=== PATIENT | male | born 1980 | race Caucasian/White ===

== ENCOUNTER 2016-06-17 18:47 | Emergency (ER) | payer SELFPAY ==
[2016-06-17 19:04] VITALS: BP 152/73; PULSE 70; RESP 18; TEMP 98; O2SAT 100
== END 2016-06-17 19:28 | disposition home or self-care (01) | DRG 563 ==
LOC: ED 18:47
DX: S63.297A Dislocation of distal interphalangeal joint of left little finger, initial encounter (principal)
CPT/HCPCS: 26770; 73140; 99282

== ENCOUNTER 2017-01-31 14:46 | Emergency (ER) | payer SELFPAY ==
[2017-01-31] MEDS ORDERED: HYDROMORPHONE HCL 2 MG/ML SOL IV ONE ×3 (15:03→17:27)
[2017-01-31] MEDS ORDERED: ONDANSETRON HCL 4 MG/2 ML SOL IV ONE (15:04)
[2017-01-31 15:05] LABS: APPEARANCE,URINE Slightly Cloudy; BILIRUBIN,URINE 1+ (NEGATIVE); COLOR,URINE Yellow; GLUCOSE, URINE (UA) NEGATIVE (NEGATIVE); KETONES,URINE NEGATIVE (NEGATIVE); LEUKOCYTE ESTERASE ,URINE NEGATIVE (NEGATIVE); NITRATE,URINE NEGATIVE (NEGATIVE); OCCULT BLOOD,URINE 1+ (NEG-TRACE); PH,URINE 5.5; UROBILINOGEN,URINE 0.2 (0.2-1.0 EU)
[2017-01-31] MEDS ORDERED: SODIUM CHLORIDE 0.9% 1000ML 1,000 ML IV ONE (15:05)
[2017-01-31] MEDS ORDERED: ONDANSETRON HCL 4 MG/2 ML SOL ONE (15:16)
[2017-01-31] MEDS ORDERED: HYDROMORPHONE 1 MG/ML SYRINGE ONE ×3 (15:16→17:28)
[2017-01-31 15:27] LABS: WBC,URINE 0-3 (0-5AV/HPF)
[2017-01-31 15:29] VITALS: TEMP 98.1
[2017-01-31 15:29] LABS: ICTOTEST,URINE NEGATIVE (NEGATIVE)
[2017-01-31 15:31] LABS: ALBUMIN 3.3 gm/dl (3.4-5.0); CALCIUM 9.4 mg/dl (8.5-10.1); POTASSIUM 4.6 mMol/L (3.5-5.1)
[2017-01-31 17:21] VITALS: RESP 16
[2017-01-31 17:27] VITALS: BP 118/75; PULSE 94; O2SAT 99
== END 2017-01-31 17:44 | disposition short-term general hospital (02) | DRG 816 ==
LOC: ED 14:46
DX: D73.4 Cyst of spleen (principal)
CPT/HCPCS: 74176; 80053; 81001; 96365; 96374; 96375; 99284; 99285; J2405; J1170

== ENCOUNTER 2017-02-05 11:42 | Emergency (ER) | payer MEDICAID ==
[2017-02-05 11:42] VITALS: O2SAT 99
[2017-02-05 11:52] VITALS: BP 141/79; PULSE 98; RESP 18; TEMP 97
[2017-02-05] MEDS ORDERED: HYDROMORPHONE HCL 2 MG/ML SOL IV ONE (11:52)
[2017-02-05] MEDS ORDERED: ONDANSETRON HCL 4 MG/2 ML SOL IV ONE (11:57)
[2017-02-05] MEDS ORDERED: SODIUM CHLORIDE 0.9% 1000 ML SOL IV SCH (12:00)
[2017-02-05] MEDS ORDERED: HYDROMORPHONE HCL 2 MG/ML SOL ONE (12:06)
[2017-02-05] MEDS ORDERED: ONDANSETRON HCL 4 MG/2 ML SOL ONE (12:06)
[2017-02-05 12:10] LABS: HEMATOCRIT 34 % (39-53); MEAN CORPUSCULAR HGB CONC 35.9 gm/dl (32.0-36.0); MEAN CORPUSCULAR VOLUME 92 fL (80-100)
[2017-02-05] MEDS ORDERED: SODIUM CHLORIDE 0.9% FLUSH 10 ML SOL IV PRN (12:29)
[2017-02-05 12:32] LABS: BASOPHILS % (MANUAL) 0 % (0-3); EOSINOPHILS % (MANUAL) 0 % (0-9); LYMPHOCYTES % (MANUAL) 5 % (10-50); NORMAL RBCS NORMAL RBCS
[2017-02-05 12:59] LABS: ALBUMIN 2.1 gm/dl (3.4-5.0); CALCIUM 8.4 mg/dl (8.5-10.1); POTASSIUM 3.8 mMol/L (3.5-5.1)
== END 2017-02-05 13:50 | disposition home or self-care (01) | DRG 392 ==
LOC: ED 11:42
DX: K59.00 Constipation, unspecified (principal)
CPT/HCPCS: 36415; 74177; 80053; 82150; 85007; 85027; 96365; 96374; 96375; 99284; J1170; J2405

== ENCOUNTER 2017-11-13 04:48 | Emergency (ER) | payer OTHER ==
[2017-11-13 04:55] VITALS: BP 136/63; PULSE 80; RESP 18; TEMP 97.4; O2SAT 96
[2017-11-13] MEDS ORDERED: LIDOCAINE HCL 1% 50 MG/5 ML SOL INFIL ONE (05:00)
[2017-11-13] MEDS ORDERED: CEFTRIAXONE 1 GM PDS IM ONE (05:22)
[2017-11-13] MEDS ORDERED: KETOROLAC TROMETHAMINE 30 MG/ML SOL IM ONE (05:22)
[2017-11-13] MEDS ORDERED: CEFTRIAXONE 1 GM PDS ONE (05:25)
[2017-11-13] MEDS ORDERED: KETOROLAC TROMETHAMINE 30 MG/ML SOL ONE (05:26)
== END 2017-11-13 06:06 | disposition home or self-care (01) | DRG 728 ==
LOC: ED 04:48
DX: N45.1 Epididymitis (principal)
CPT/HCPCS: 96372; 99283; J0696; J1885; J2001